=== PATIENT | female | born 1960 | race African-American/Black ===

== ENCOUNTER → 2017-08-30 | Outpatient (CLI) | payer OTHER | LOC: RAD 11:38 | DX: Z12.31 Encounter for screening mammogram for malignant neoplasm of breast (principal) ==

== ENCOUNTER 2018-01-28 09:29 | Inpatient (IN) | payer OTHER ==
[~2018-01-28] VITALS: Ht 165.1 cm; Wt 64.3 kg
--- NOTE | ~2018-01-28 | HC ---
[facility] [place] [address] CONSULTATION Name: MIKA LOVE Room #: 207-P [facility] IN M.R.#: [id number] Admission: 01/28/18 Attend Phys: Sebastián Frausto MD Discharge: 02/02/18 Date of : 62 Report #: [id number] THIS REPORT FOR: //name// CC: Sebastián Frausto MD INPATIENT GASTROENTEROLOGY CONSULTATION REPORT REASON FOR CONSULTATION: The patient is a 57-year-old woman who was admitted with nausea, vomiting and hematemesis. HISTORY OF PRESENT ILLNESS: This 57-year-old woman has a history of morbid obesity and underwent a lap band placement in 2004. She noted that initially she was 275 pounds and she lost weight down to about 130 pounds. She has done very well and has maintained that weight loss for many years. She reports she has not had any fluid placed in the laparoscopic band since 2008. She reports that if she does eat too fast, she will have vomiting. This may occur on a weekly basis, but the episodes are typically intermittent. She reports that recently she had been on earlier this month and then returned about 01/20/2018. About a week or so, she started feeling bad and this past week, she has had vomiting every time she eats. She reports that as soon as she eats food and liquid will come up. In the past 3 days, she has noted the fluid has turned to black color. It has never been bright red. She also has had epigastric discomfort and pain and also some chest discomfort associated with the vomiting. She reports due to the vomiting, she has lost about 10 pounds. She has not had any recent fever or chills, although she did have flu-like symptoms in October. Typically, her bowel habits are regular when eating salads. However, since she has been able to eat in the past week or so, she has not had stools and she reports it is because she has been unable to eat salads. She also reports she has had intermittent bright red blood per rectum. She has had blood and stool mixed together. She notes these symptoms started last August. She was seen in Dr. Frausto's office and reports that no abnormalities were identified. She did have a colonoscopy. She does not recall specifics, but thinks it was about 10 years ago for screening and she reports it was negative. Due to these symptoms, she contacted Dr. Frausto's office and was admitted through the Emergency Room Department to [facility]. She has undergone evaluation. White count is normal at 5.3; hemoglobin was 14 initially last night and this morning, 12.2 and platelet count is 352,000. Sodium 147; potassium was 2.7 initially, it is up to 3.1 this morning, she is still undergoing replacement. BUN was initially 28, now down to 22 and creatinine of 1.2 initially and down to 0.9. LFTs have been completely normal. [address] [address] CONSULTATION Name: COMERMIKA Room #: 207-P DIS IN M.R.#: [id number] Admission: 01/28/18 Attend Phys: Sebastián Frausto MD Discharge: 02/02/18 Date of : 62 Report #: [id number] Troponins have been normal. BNP of 51. Albumin was 4.5 yesterday, 3.5 today. Imaging studies including a chest x-ray was negative. A lap band is noted to be around the GE junction. There is a large amount of stool in the colon. PAST MEDICAL AND SURGICAL HISTORY: She has been treated for anxiety. She has had problems with migraine headaches, for which she takes ibuprofen. She has had lap band surgery and eye surgery. She did have back pain a few years ago, which was treated with prednisone. ALLERGIES: No known drug allergies. CURRENT MEDICATIONS: Wellbutrin 150 mg daily, Flexeril 10 mg as needed, sumatriptan 100 mg as needed for migraine. She also takes ibuprofen about 4 times weekly; when she does so, she will take 2-4 in a day. FAMILY HISTORY: Mother had ovarian cancer. Father had some sort of cancer, she does not recall the type. There is no family history of colon cancer. 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 She quit smoking 18 years ago. She will drink alcohol 2-3 times weekly. REVIEW OF SYSTEMS: GENERAL: She had lost about 10 pounds. She has not had any recent fever or chills. CENTRAL NERVOUS SYSTEM: No focal weakness, numbness, loss of consciousness, seizures or stroke. She does have migraine headaches. ENT: No change in vision, hearing or sores in the mouth. PULMONARY: She has had 2 remote pneumonias. She quit smoking 18 years ago. CARDIOVASCULAR: She did have an abnormal EKG a couple years ago. She did have a stress test and reports it was negative. Other than recently, she has not had any chest pain. GASTROINTESTINAL: Recent nausea and vomiting. Lap band. She tends to have problems with constipation, which she manages with salads. Rectal bleeding starting last August. GENITOURINARY: Without dysuria, pyuria, kidney stones or urinary tract infections. GYNECOLOGIC: No breast problems. No vaginal discharges or bleeding. MUSCULOSKELETAL: Back pain in the past. SKIN: She had pityriasis rosea in the 1980s. ENDOCRINE: She is not aware of thyroid or diabetes problems. PSYCHIATRIC: She has been treated for anxiety. HEMATOLOGIC: No bleeding or bruising. No malignancies. PHYSICAL EXAMINATION: GENERAL: The patient is a well-developed, well-nourished, pleasant woman, in [facility] [place] [address] [place] [address] CONSULTATION Name: COMERMIKA Room #: 207-P [facility] IN [facility].#: [id number] Admission: 01/28/18 Attend Phys: Sebastián Frausto MD Discharge: 02/02/18 Date of : 62 Report #: [id number] acute distress. VITAL SIGNS: She has been afebrile since admission. Blood pressure 145/63, heart rate 65. HEENT: Anicteric. Pupils equal and round. Oropharynx clear. NECK: Supple. CHEST: Clear. HEART: Regular rate and rhythm, normal S1 and S2. ABDOMEN: Normal bowel sounds. Her abdomen is soft. I do not appreciate hepatosplenomegaly. There is modest tenderness to deep palpation in the epigastrium. The port for the lap band is palpable in the upper abdomen. It is unremarkable. Lower quadrant is unremarkable. RECTAL: Not done at this time. EXTREMITIES: Without cyanosis, clubbing or edema. NEUROLOGIC: Oriented to person, place and time. Moves all 4 extremities well. ASSESSMENT AND PLAN: 1. Hematemesis. 2. Protracted nausea and vomiting. 3. History of lap band, 2004. 4. Intermittent rectal bleeding since 08/2017. 5. Anxiety. 6. Use of ibuprofen. 7. Migraine headaches. 8. Hypokalemia. COMMENTS: She does use ibuprofen and peptic ulcer disease is a possibility. It is possible lap band may have migrated more proximally and may be seated at the GE junction, which essentially is causing obstruction in the esophagus and this is difficult to determine on the x-ray. RECOMMENDATIONS: 1. Continue symptomatic treatments including IV pantoprazole. 2. Agree with Zofran. 3. Replace potassium. 4. Upper endoscopy possibly tomorrow or the next day depending on schedules on the weekend. 5. Colonoscopy, we will likely need to do as an outpatient after her nausea and vomiting issues have been addressed and she is able to tolerate a prep. <ELECTRONICALLY SIGNED> By: Kevin Sherman MD 01/30/18 1408 [id number] 1202 Kevin Sherman MD /nt
--- NOTE | ~2018-01-28 | S ---
[facility] [place] [address] SURGICAL PATH RPT PROCEDURE Name: ASHLEY GREEN Room #: 207-P DIS IN M.R.#: [id number] Admission: 01/28/18 Date of : 62 Discharge: 02/02/18 Report #: [id number] Path Case #: [id number] PATHOLOGY REPORT COLLECTION DATE: 01/30/2018 RECEIVED DATE: 01/31/2018 SUBMITTING PHYS: Dr. Kevin Sherman OTHER PHYS: Dr. Sebastián Frausto SPECIMEN(S) RECEIVED: A.Bx gastritis * * * * * * * * * * * * FINAL DIAGNOSIS: "Bx gastritis," biopsy: - Gastric mucosa with mild reactive changes and mild chronic inflammation. - Negative H. pylori immunohistochemical stain (block A1); control reacted appropriately. (CLW:; 02/01/2018) PATHOLOGIST: Estella Vaughan M.D. REPORT ELECTRONICALLY SIGNED BY: Estella Vaughan M.D. DATE/TIME: 02/01/2018 17:50 * * * * * * * * * * * * GROSS PATHOLOGY: Received in formalin labeled "Ashley Green, bx gastritis rule out H. pylori," are multiple (more than 5) segments of watson soft tissue measuring 1.3 x 0.5 x 0.2 cm in aggregate dimensions. The specimen is submitted entirely in cassette A1. (SDY; 01/31/2018) CLINICAL HISTORY: Rule out H. pylori Abdominal pain, esophagitis INITIAL CPT CODE(S): A; 58379, 93078 Professional services performed by [facility] at [facility] [address], [place] [address] Technical services performed by [facility] at [address] [place] [address]. [facility] [address] [place] [address] SURGICAL PATH RPT PROCEDURE Name: ASHLEY GREEN Room #: 207-P DIS IN M.R.#: [id number] Admission: 01/28/18 Date of : 62 Discharge: 02/02/18 Report #: [id number] Path Case #: [id number] [facility] [address] [address] PHONE: [phone] DIRECTOR: Kike Ralph M.D. * * * END OF REPORT * * *
--- NOTE | ~2018-01-28 | P ---
[facility] [place] [address] PROCEDURE REPORT Name: COMERMIKA Room #: 207-P [facility] IN M.R.#: [id number] Admission: 01/28/18 Attend Phys: Sebastián Frausto MD Discharge: 02/02/18 Date of : 62 Report #: [id number] THIS REPORT FOR: //name// CC: SEBASTIÁN Frausto BRIEF HISTORY: The patient is a 57-year-old woman with history of a lap band placed in 2004. She presented with nausea, vomiting, hematemesis. She also had been using ibuprofen. PREOPERATIVE DIAGNOSES: 1. Nausea. 2. Vomiting. 3. Hematemesis. POSTOPERATIVE DIAGNOSES: 1. Mkfigcjg-fb-vpjsrg erosive esophagitis. 2. Mild erythematous gastritis. 3. Surgical changes consistent with lap band. MEDICATIONS: Deep sedation with propofol per anesthesia. SPECIMEN: Biopsies of gastritis. ESTIMATED BLOOD LOSS: 3 mL. PROCEDURE: EGD with biopsy. FINDINGS: Prior to propofol sedation, procedure of upper endoscopy was discussed with the patient as well as potential risks and its complications. She indicates she understands and desires to proceed. DESCRIPTION OF PROCEDURE: With the patient in left lateral decubitus position, the [employer] video endoscope was inserted in the cervical esophagus under direct vision without difficulty. Examination of this organ through its entire length revealed a small amount of liquid and a few fragments of ____ material in the distal esophagus. This was aspirated away. The scope was advanced and the distal esophagus carefully examined. There were extensive erosions throughout the distal esophagus with no evidence of active bleeding. The Z line was identified and noted to be intact. The narrowing of the stomach from the lap band was noted. There was only about 1-2 cm of stomach within the lap band pouch. The gastric folds went into the narrowed segment from the lap band. Endoscopically it had a tight appearance, but the scope passed easily through this segment into the distal stomach. Distal stomach was examined on end view as well as retroflexed views. There was a small amount of fluid in the antrum, which was aspirated away. There was mild erythema, but no ulcers or erosions in spite of the fact she has been using ibuprofen. Upon retroflexion, typical [facility] [address] [place] [address] PROCEDURE REPORT Name: MIKA LOVE Room #: 207-P DIS IN M.R.#: [id number] Admission: 01/28/18 Attend Phys: Sebastián Frausto MD Discharge: 02/02/18 Date of : 62 Report #: [id number] changes of lap band were seen. There was no evidence of ulceration around the lap band. The pylorus, duodenal bulb, and postbulbar duodenal sweep were inspected and noted to be unremarkable. At that point, the scope was withdrawn and under careful circumferential views confirmed the above findings. The patient tolerated the procedure well. Biopsies were obtained of the gastritis. DISPOSITION: The patient with nausea, vomiting and hematemesis. The hematemesis likely came from her esophagus. Although she was using ibuprofen, I do not see significant ulcer disease or bleeding lesions at this time. As far as her nausea and vomiting, her pouch is very small. She tells me there was no liquid in the band. The scope passed easily, but the lumen appeared to be tight endoscopically. The pouch was very small and I wonder if there has been proximal migration of the lap band. At this point in time, we will obtain a surgical opinion with regards to removal of the lap band, especially if her symptoms persist. As noted on the consult note, she has had red blood per rectum and has not had a colonoscopy in 10 years. Once this is all resolved, the patient should have a colonoscopy. <ELECTRONICALLY SIGNED> By: Kevin Sherman MD 01/30/18 1408 [id number] 1317 Kevin Sherman MD /nt
--- NOTE | ~2018-01-28 | EKG ---
[address] [place] [address] ELECTROCARDIOGRAM REPORT Name: MIKA LOVE Room #: 207-P [facility] IN M.R.#: [id number] Admission: 01/28/18 Attend Phys: Sebastián Frausto MD Discharge: 02/02/18 Date of : 62 Report #: [id number] THIS REPORT FOR: //name// [facility] ED Test Date: 2018-01-28 Test Time: 09:39:56 Pat Name: MIKA LOVE Department: Room: [facility] Gender: F Virologist: [facility] : 1960 Requested By: Luis Arreola Order Number: [id number] MD: Florian Luong Measurements Intervals [place] Rate: 76 P: 74 [place]: 119 QRS: 71 QRSD: 89 T: 60 QT: 394 QTc: 444 Interpretive Statements Sinus rhythm Borderline short [place] interval Nonspecific ST and T wave abnormality No previous ECG available for comparison Electronically Signed On 01-30-2018 13:36:00 CDT by Florian Luong [email or web address] <ELECTRONICALLY SIGNED> By: Florian Luong MD, [facility] 01/30/18 1336 0939 Florian Luong MD, [facility] /EPI
--- NOTE | ~2018-01-28 | S ---
[facility] [place] [address] SURGICAL PATH RPT PROCEDURE Name: ASHLEY LOVE Room #: 207-P DIS IN M.R.#: [id number] Admission: 01/28/18 Date of : 62 Discharge: 02/02/18 Report #: [id number] Path Case #: [id number] PATHOLOGY REPORT COLLECTION DATE: 01/31/2018 RECEIVED DATE: 01/31/2018 SUBMITTING PHYS: Dr. Henry Donald, OTHER PHYS: Dr. Sebastián Powell SPECIMEN(S) RECEIVED: A.Lap band * * * * * * * * * * * * FINAL DIAGNOSIS: "Lap band", removal: - Foreign body consistent with lap band and port. (gross examination only) (CLW:katarzyna; 02/01/2018) PATHOLOGIST: Estella Vaughan M.D. REPORT ELECTRONICALLY SIGNED BY: Estella Vaughan M.D. DATE/TIME: 02/01/2018 17:56 * * * * * * * * * * * * GROSS PATHOLOGY: Received fresh labeled "Ashley [place], lap band and port," is a white plastic port device measuring 3.0 x 3.0 x 1.6 cm with attached white, flexible tubing measuring 8.7 cm in length and 0.3 cm in diameter. The port device displays the inscription "PORT-A-CATH, [id number]". Also received within the specimen container is a circular, previously severed white-watson band measuring 4.4 x 3.9 x 1.6 cm with attached white, flexible tubing measuring 42 cm in length by 0.3 cm in diameter. Gross photographs are taken, and tissue is not submitted. ([facility]; 02/01/2018) CLINICAL HISTORY: Abdominal pain and vomiting INITIAL CPT CODE(S): A; 77152 Professional services performed by [facility] at [facility] [address] , [place] [address] [facility] [address] [place] [address] SURGICAL PATH RPT PROCEDURE Name: COMERASHLEY DEMETRIUS Room #: 207-[facility] IN M.R.#: [id number] Admission: 01/28/18 Date of : 62 Discharge: 02/02/18 Report #: [id number] Path Case #: [id number] Technical services performed by [facility] at [address] [place] [address], [facility] [address], [place] [address]. [facility] [address] [place] [address] PHONE: [phone] DIRECTOR: Kike Ralph M.D. * * * END OF REPORT * * *
[2018-01-28 09:57] VITALS: BP 133/91
[2018-01-28 10:11] LABS: ABSOLUTE NEUTROPHILS 2.5 thou/uL (1.4-8.2); BASOPHILS 1.2 % (0.0-2.0); EOSINOPHILS 1.7 % (0.0-3.0); HEMATOCRIT 42.2 % (37.0-47.0); LYMPHOCYTES 40.7 % (24.0-44.0); MCHC 33.2 g/dL (28.0-37.0); MCV 87.2 fL (80.0-100.0); PLATELET COUNT 444 thou/uL (150-400); POLYS 49.4 % (36.0-66.0); RBC 4.83 mil/uL (4.20-5.00); RDW 15.3 % (10.5-14.5)
[2018-01-28 10:17] LABS: ANION GAP 11 mmol/L (7-16); BUN 28 mg/dL (7-18); CALCIUM 10.1 mg/dL (8.5-10.1); CHLORIDE 103 mmol/L (98-107); CO2 33 mmol/L (21-32); CREATININE 1.2 mg/dL (0.6-1.0); GLUCOSE 101 mg/dL (74-106); SODIUM 147 mmol/L (136-145)
[2018-01-28 10:18] LABS: POTASSIUM 2.7 mmol/L (3.5-5.1)
[2018-01-28 10:25] LABS: TROPONIN-I < 0.04 ng/mL (<0.06)
[2018-01-28 11:01] LABS: ALBUMIN 4.5 g/dL (3.4-5.0); DIRECT BILIRUBIN 0.1 mg/dL (<0.1-0.3); MAGNESIUM 2.3 mg/dL (1.8-2.4); TOTAL BILIRUBIN 0.5 mg/dL (<0.1-1.0); TOTAL PROTEIN 9.7 g/dL (6.4-8.2)
[2018-01-28 11:43] VITALS: BP 129/89
[2018-01-28 12:18] VITALS: BP 123/74
[2018-01-28 12:29] VITALS: BP 116/96
[2018-01-28 15:12] VITALS: BP 129/74
[2018-01-28] MEDS ORDERED: WELLBUTRIN SR150 MG PO (15:34)
[2018-01-28] MEDS ORDERED: FLEXERIL PO (15:36)
[2018-01-28] MEDS ORDERED: SUMATRIPTAN SU100 MG PO (15:37)
[2018-01-28] MEDS ORDERED: PREDNISONE 10 M10 MG PO (15:38)
[2018-01-28 20:10] VITALS: BP 136/57
[2018-01-29 03:58] LABS: HEMATOCRIT 37.1 % (37.0-47.0); HEMOGLOBIN 12.2 gm/dL (12.0-15.0); MCHC 32.9 g/dL (28.0-37.0); MCV 88.1 fL (80.0-100.0); RBC 4.21 mil/uL (4.20-5.00); RDW 15.4 % (10.5-14.5); WBC 5.3 thou/uL (4.0-11.0)
[2018-01-29 04:10] VITALS: BP 158/68
[2018-01-29 04:17] LABS: ALBUMIN 3.5 g/dL (3.4-5.0); CALCIUM 8.8 mg/dL (8.5-10.1); CREATININE 0.9 mg/dL (0.6-1.0); POTASSIUM 3.1 mmol/L (3.5-5.1); TOTAL BILIRUBIN 0.5 mg/dL (<0.1-1.0); TOTAL PROTEIN 7.6 g/dL (6.4-8.2)
[2018-01-29 07:50] VITALS: BP 145/63
[2018-01-29 12:27] LABS: CALCIUM 9.2 mg/dL (8.5-10.1); MAGNESIUM 1.9 mg/dL (1.8-2.4); POTASSIUM 3.4 mmol/L (3.5-5.1)
[2018-01-29 12:28] VITALS: BP 108/86
[2018-01-29 15:05] VITALS: BP 113/98
[2018-01-29 20:01] VITALS: BP 189/103
[2018-01-29 23:09] VITALS: BP 150/78
[2018-01-30] VITALS (11 sets, daily range): BP systolic 139–179; BP diastolic 67–84
[2018-01-30 04:18] LABS: CALCIUM 8.5 mg/dL (8.5-10.1); CREATININE 0.8 mg/dL (0.6-1.0); POTASSIUM 3.5 mmol/L (3.5-5.1)
[2018-01-30 04:26] LABS: HEMATOCRIT 32.9 % (37.0-47.0); MCH 29.6 pg (26.0-34.0); MCHC 33.5 g/dL (28.0-37.0); MCV 88.3 fL (80.0-100.0); RBC 3.73 mil/uL (4.20-5.00); RDW 14.8 % (10.5-14.5); WBC 5.5 thou/uL (4.0-11.0)
[2018-01-31] VITALS (11 sets, daily range): BP systolic 135–161; BP diastolic 66–85
[2018-01-31 03:28] LABS: HEMATOCRIT 33.3 % (37.0-47.0); HEMOGLOBIN 11.3 gm/dL (12.0-15.0); MCH 29.5 pg (26.0-34.0); MCHC 33.9 g/dL (28.0-37.0); MCV 86.9 fL (80.0-100.0); RBC 3.83 mil/uL (4.20-5.00); RDW 14.5 % (10.5-14.5); WBC 5.1 thou/uL (4.0-11.0)
[2018-01-31 03:43] LABS: CALCIUM 8.6 mg/dL (8.5-10.1); CREATININE 0.8 mg/dL (0.6-1.0)
[2018-01-31 03:44] LABS: POTASSIUM 2.9 mmol/L (3.5-5.1)
[2018-02-01 04:40] VITALS: BP 145/80
[2018-02-01 08:23] VITALS: BP 147/75
[2018-02-01 11:45] VITALS: BP 127/65
[2018-02-01 15:27] VITALS: BP 145/73
[2018-02-01 19:07] VITALS: BP 131/61
[2018-02-02 04:28] VITALS: BP 144/81
[2018-02-02 07:59] VITALS: BP 140/67
[2018-02-02 11:43] VITALS: BP 140/67
[2018-09-09] MEDS ORDERED: PHENTERMINE H37.5 MG PO (10:26)
[2018-09-09] MEDS ORDERED: [UNRECOGNIZED DRUG - OTHER] PO (10:27)
[2018-09-09] MEDS ORDERED: [UNRECOGNIZED DRUG - OTHER] PO (10:29)
[2018-09-09] MEDS ORDERED: [UNRECOGNIZED DRUG - OTHER] PO (10:31)
[2018-09-09] MEDS ORDERED: PROBIOTIC1 EAC1 PO (10:31)
[2018-09-09] MEDS ORDERED: B12INJ IM (10:31)
[2018-09-09] MEDS ORDERED: [UNRECOGNIZED DRUG - OTHER] PO (10:32)
[2018-09-09] MEDS ORDERED: [UNRECOGNIZED DRUG - OTHER] PO (10:33)
[2018-09-09] MEDS ORDERED: FLEXERIL PO (10:34)
[2018-09-09] MEDS ORDERED: VOLTAREN GEL 1100 G1 TOP (11:49)
== END 2018-02-02 13:34 | disposition home or self-care (01) | DRG 987 ==
LOC: ER 09:29 → 2N 11:19 → EROBS 11:19 → 2N 11:19 → ENTRNSPT 02-02 12:24 → EDTRNSPTSTS 02-02 12:27 → 2N 02-02 13:34
PROVIDERS: Hospitalist; Nurse Practitioner
PROC: 0DB68ZX Excision of Stomach, Via Natural or Artificial Opening Endoscopic, Diagnostic (ICD-10-PCS; principal; 2018-01-30)
PROC: 0DP64CZ Removal of Extraluminal Device from Stomach, Percutaneous Endoscopic Approach (ICD-10-PCS; 2018-01-31)
DX: K95.09 Other complications of gastric band procedure (principal); E43 Unspecified severe protein-calorie malnutrition; N17.0 Acute kidney failure with tubular necrosis; K22.10 Ulcer of esophagus without bleeding; K92.0 Hematemesis; K29.70 Gastritis, unspecified, without bleeding; E87.6 Hypokalemia; F41.9 Anxiety disorder, unspecified; G43.909 Migraine, unspecified, not intractable, without status migrainosus; K59.00 Constipation, unspecified; L53.9 Erythematous condition, unspecified; E16.2 Hypoglycemia, unspecified; Z68.23 Body mass index [BMI] 23.0-23.9, adult; Z80.41 Family history of malignant neoplasm of ovary; Z87.891 Personal history of nicotine dependence
CPT/HCPCS: 10081; 50010; 50101; 50249; 50386; 50555; 50558; 50962; 51489; 52265; 53307; 53310; 53311; 54022; 54118; 56462; 56525; 56526; 57092; 62110; 62900; 70005

== ENCOUNTER → 2018-08-29 | Outpatient (CLI) | payer OTHER ==
[~2018-08-29] MED LIST: FLEXERIL PO; PREDNISONE 10 M10 MG PO; SUMATRIPTAN SU100 MG PO; WELLBUTRIN SR150 MG PO
== END ==
LOC: RAD 11:27
DX: Z12.31 Encounter for screening mammogram for malignant neoplasm of breast (principal)

== ENCOUNTER → 2018-09-09 | Outpatient (CLI) | payer OTHER ==
[~2018-09-09] VITALS: Ht 165.1 cm; Wt 68.0 kg
[~2018-09-09] MED LIST changes: +B12INJ IM; +PHENTERMINE H37.5 MG PO; +PROBIOTIC1 EAC1 PO; +VOLTAREN GEL 1100 G1 TOP; +[UNRECOGNIZED DRUG - OTHER] PO; +[UNRECOGNIZED DRUG - OTHER] PO; +[UNRECOGNIZED DRUG - OTHER] PO; +[UNRECOGNIZED DRUG - OTHER] PO; +[UNRECOGNIZED DRUG - OTHER] PO
--- NOTE | ~2018-09-09 | HPC ---
[facility] [address] [address] PAIN MANAGEMENT CONSULTATION Name: MIKA LOVE Room #: REG AMANDA Octavio.#: [id number] Admission: 09/09/18 Attend Phys: Dameon Covarrubias MD Discharge: Date of : 62 Report #: [id number] THIS REPORT FOR: //name// CC: Dameon Frausto DATE OF SERVICE: 09/09/2018 CHIEF COMPLAINT: Bilateral shoulder pain and neck pain. HISTORY OF PRESENT ILLNESS: The patient is a 58-year-old female who has been referred to the pain clinic for evaluation of neck and shoulder pain. She complains of pain, which involves her upper back. Pain is worse when she rotates her head to the right. She has tried muscle relaxers in the past with a little bit of improvement. She describes the pain is aching, started in about 05/2018. Denies any trauma. She rates her pain as a 4/10. The patient has had an x-ray of her neck. She indicates that she does have some narrowing in the C5-C6 and C6-C7 areas. She has undergone physical therapy for the shoulder pain. She is not experiencing any numbness or tingling sensation radiating down into her hands or arms. The patient has been continuing to work on weight management. She did have a lap band placed in the past, that has been removed and noted a pound weight gain. ALLERGIES: No known drug allergies. MEDICATIONS: Flexeril 10 mg 1 p.o. t.i.d., EFA (the central fatty acid supplements) 1 tab daily, water release tablet 1 daily, vitamin B12 1000 mcg intramuscular weekly, lactobacillus probiotic, Neuroflam-ERB one tablet daily appetite suppressant 1 tablet daily, Slam-7 carb jose francisco 1 tablet daily, and phentermine 37.5 mg daily. PAST MEDICAL HISTORY: Chest pain, hypokalemia, nausea, anxiety, and hypertension. Myofascial pain, right trapezius and rhomboid area. PAST SURGICAL HISTORY: Lap band on 01/2018 removal, lap band 08/2005 placement, and eye surgery 01/2006. SOCIAL HISTORY: She is a territory account manager. She is working at this juncture. REVIEW OF SYSTEMS: Generally good health, weight change, headaches, wears glasses, blurred vision, reoccurring headaches, abdominal pain, constipation, nausea and vomiting, [place] [address] PAIN MANAGEMENT CONSULTATION Name: COMEMIKA River Room #: REG [facility] [place]#: [id number] Admission: 09/09/18 Attend Phys: Dameon Covarrubias MD Discharge: Date of : 62 Report #: [id number] LABORATORY DATA: X-ray exam cervical spine for neck pain. PROCEDURE, AP, lateral, right and left oblique, right oblique, odontoid views and lateral view with flexion were obtained. FINDINGS: Minimal disk narrowing is present at C5-C6 and C6-C7 levels. Alignment of the cervical spine was normal. No abnormal motion with flexion. IMPRESSION: Minimal disk narrowing at C5-C6 and C6-C7 levels is likely degenerative in nature. No fractures or dislocation. Normal motion doing flexion and normal position. PAIN CLINIC ASSESSMENT/PQRS: 1. History of osteoarthritis. The patient is not being treated for osteoarthritis. She does have some arthritic changes in her neck. The patient is not being treated for rheumatoid arthritis. 2. Height 5 feet 5 inches, weight 150 pounds, BMI is 25.0. 3. Vital Signs: Blood pressure 134/77, pulse 74, respiratory rate 16, room air saturation is 100%. 4. Pain intensity 02/22. 5. Fall risk. The patient has not fallen in the last 3 months. 6. Blood thinner. The patient is not on a blood thinning medication. 7. Hypertension. The patient is not being treated for hypertension. 8. Opioid therapy greater than 6 weeks. The patient is not being treated with opioid medications. 9. Risk assessment tool, low for opioid use. 10. Functional assessment tool . 11. Recreational drug use. The patient denies use of recreational drugs. 12. Tobacco: The patient denies use of tobacco. 13. Alcohol: The patient denies frequent use of alcoholic beverages. PHYSICAL EXAMINATION: GENERAL: The patient is a well-developed, well-nourished black female, appears her stated age. She is alert and oriented x 3. Affect is appropriate. Speech is fluent. HEENT: Normocephalic, atraumatic. Extraocular eye muscles intact. Sclerae nonicteric. Mucous membranes are moist. NECK: The patient has some pain and discomfort on the right side in the area of the trapezius. Also, has pain and discomfort in the trapezius on the left. She has pain and discomfort in the left and right rhomboid area. Pain and discomfort in the midline and posterior cervical area. The patient has noted some worsening of pain and discomfort in the neck area. Massage is sometimes helpful. The patient notes a tightness in the area. Notes some difficulty with driving. She makes more problematic when she has to turn her head. The patient has had physical therapy to help massage the areas. Palpation in the area of the left trapezius area as well as the left rhomboid area indicate a significant [facility] [address] [place] [address] PAIN MANAGEMENT CONSULTATION Name: MIKA LOVE Room #: REG [facility]#: [id number] Admission: 09/09/18 Attend Phys: Damoen Covarrubias MD Discharge: Date of : 62 Report #: [id number] component of pain. HEART: Regular rate. ABDOMEN: Nontender, slightly protuberant, bowel sounds normal. MUSCULOSKELETAL: Upper extremity muscle strength is judged to be 5/5 for the major muscle groups in the upper extremity. Lower extremity muscle strength is judged to be 5/5 for the major muscle groups in the lower extremity. The patient is without significant sensory changes in the lower extremity. IMPRESSION: Myofascial pain, right trapezius and rhomboid area. RECOMMENDATIONS: We discussed treatment options with the patient. At this juncture, she is having pain and discomfort. I would recommend that we proceed with trigger point injections to the affected area. The patient notes worsening of her pain with such activities as using her computer, extending her arm as well as with physical therapy exercises. Risks and benefits of trigger point injections were discussed. They include but are not limited to infection, increased muscle soreness, worsening of pain, no improvement in pain. Possibility of pneumothorax. The patient elects to proceed. PROCEDURE NOTE: The patient was placed in the sitting position. Her right shoulder area was sterilely prepped with a chlorhexidine solution. The right trapezius area was identified. Trigger point was noted. A 25-gauge needle was then advanced into the area of the trigger point. Aspiration was negative. No air was noted. A total of 10 mL of 0.5% bupivacaine and 40 grams triamcinolone was injected. The lower rhomboid area was palpated. A trigger point was noted in this area. A 25-gauge needle was then advanced into the area of the trigger point in this location. This second trigger point was injected with 10 mL of 0.5% bupivacaine and 40 mg triamcinolone. Aspiration did not produce any air. There was no blood. The patient tolerated the procedure well. She remained in the pain clinic for an appropriate amount of time. She will follow up in the future as needed. We would like to thank you for letting us participate in her care. We hope she continues to improve. By: 1823 04 Dameon Covarrubias MD /nt
[2018-09-09 10:52] VITALS: BP 134/71
== END | disposition home or self-care (01) ==
LOC: PAIN 07:26
DX: M79.18 Myalgia, other site (principal); G89.29 Other chronic pain; I10 Essential (primary) hypertension; F41.9 Anxiety disorder, unspecified; Z98.890 Other specified postprocedural states; Z79.899 Other long term (current) drug therapy; Z87.891 Personal history of nicotine dependence

== ENCOUNTER → 2019-02-02 | Outpatient (CLI) | payer OTHER | LOC: MRI 09:32 | DX: M50.321 Other cervical disc degeneration at C4-C5 level (principal); M51.34 Other intervertebral disc degeneration, thoracic region; M50.221 Other cervical disc displacement at C4-C5 level; M25.78 Osteophyte, vertebrae; M12.88 Other specific arthropathies, not elsewhere classified, other specified site; G89.29 Other chronic pain; M79.18 Myalgia, other site; E66.09 Other obesity due to excess calories; Z68.24 Body mass index [BMI] 24.0-24.9, adult ==

== ENCOUNTER → 2019-03-02 | Outpatient (CLI) | payer OTHER | LOC: MRI 02-22 15:28 | DX: G93.9 Disorder of brain, unspecified (principal) ==

== ENCOUNTER → 2019-05-12 | Outpatient (CLI) | payer OTHER | LOC: ULTRA 09:51 | DX: M79.89 Other specified soft tissue disorders (principal); M79.604 Pain in right leg ==

== ENCOUNTER → 2019-05-17 | Outpatient (CLI) | payer OTHER ==
[2019-05-17 10:09] LABS: ALBUMIN 3.4 g/dL (3.4-5.0); CALCIUM 8.8 mg/dL (8.5-10.1); CREATININE 0.9 mg/dL (0.6-1.0); POTASSIUM 4.1 mmol/L (3.5-5.1); TOTAL BILIRUBIN 0.3 mg/dL (<0.1-1.0); TOTAL PROTEIN 7.2 g/dL (6.4-8.2)
[2019-05-19 16:08] LABS: ANTI-DNA SCREEN 1 IU/mL (0-9); ANTI-RNP <0.2 AI (0.0-0.9)
== END ==
LOC: MRI 04-24 15:30
PROVIDERS: Psychiatry & Neurology Neuromuscular Medicine
DX: M50.223 Other cervical disc displacement at C6-C7 level (principal); M41.84 Other forms of scoliosis, thoracic region; K76.89 Other specified diseases of liver

== ENCOUNTER → 2019-09-25 | Outpatient (CLI) | payer OTHER | LOC: BC 12:29 | DX: Z12.31 Encounter for screening mammogram for malignant neoplasm of breast (principal) ==

== ENCOUNTER → 2020-09-11 | Outpatient (CLI) | payer OTHER | LOC: LAB 08:56 | PROVIDERS: ATTEND Family Medicine | DX: Z20.828 Contact with and (suspected) exposure to other viral communicable diseases (principal) ==